=== PATIENT | male | born 1955 | race Two or more races ===

== ENCOUNTER 2018-11-30 20:15 | Emergency (ER) | payer SELFPAY ==
[2018-11-30] MEDS ORDERED: Lidocaine 2% Viscous Solution 15 ML Cup PO ONE (20:17)
[2018-11-30] MEDS ORDERED: Benzocaine 20% Topical Spray UD MUCMEM ONE (20:17)
--- NOTE | 2018-11-30 20:27 | EDM.PDOC ---
ED HPI GENERAL MEDICAL PROBLEM - General Chief Complaint: ENT Problem Stated Complaint: TOOTHACHE Time Seen by Provider: 11/30/18 20:17 Source of Information: Reports: Patient History Limitations: Reports: No Limitations - History of Present Illness INITIAL COMMENTS - FREE TEXT/NARRATIVE: HISTORY AND PHYSICAL: History of present illness: Patient is a 63-year-old male who presents to the emergency room with complaints of left upper and lower dental pain 2-3 days. He states his been using Tylenol and ibuprofen without any relief. He has tenderness to the gumline when chewing or with palpation. Patient does have multiple cavities and fillings noted. Patient denies any fever, chills, headache, change in vision, syncope or near syncope. Denies any chest pain, back pain, shortness of breath or cough. Denies any abdominal pain, nausea, vomiting, diarrhea, constipation or dysuria. Has not noted any blood in urine or stool. Patient has been eating and drinking appropriately. Review of systems: As per history of present illness and below otherwise all systems reviewed and negative. Past medical history: As per history of present illness and as reviewed below otherwise noncontributory. Surgical history: As per history of present illness and as reviewed below otherwise noncontributory. Social history: See social history for further information Family history: As per history of present illness and as reviewed below otherwise noncontributory. Physical exam: General: Well-developed and well-nourished 63-year-old male. Alert and oriented. Nontoxic appearing and in no acute distress. HEENT: Atraumatic, normocephalic, pupils equal and reactive bilaterally, negative for conjunctival pallor or scleral icterus, mucous membranes moist, erythema along the gumline of #15 through 13. Multiple fillings, poor dental hygiene and dental decay/cavities noted. TMs normal bilaterally, throat clear, neck supple, nontender, trachea midline. No drooling or trismus noted. No meningeal signs. No hot potato voice noted. Lungs: Clear to auscultation, breath sounds equal bilaterally, chest nontender. Heart: S1S2, regular rate and rhythm without overt murmur Abdomen: Soft, nondistended, nontender. Skin: Intact, warm, dry. No lesions or rashes noted. Extremities: Atraumatic, moves all extremities per self without difficulty or deficits, negative for cords or calf pain. Neurovascular unremarkable. Neuro: Awake, alert, oriented. Cranial nerves II through XII unremarkable. Cerebellum unremarkable. Motor and sensory unremarkable throughout. Exam nonfocal. Notes: Discussed with patient the importance of follow-up with the dentist. Medication and supportive care measures were reviewed and discussed. Voices understanding and is agreeable to plan of care. Denies any further questions or concerns at this time. Diagnostics: None Therapeutics: Viscous lidocaine, Hurricaine spray Prescription: Pen VK Tramadol (#15) Impression: Dental abscess Plan: 1. Please take the antibiotic as prescribed. 2. Tylenol and/or ibuprofen as needed for pain management. "Tooth Balls" have been given to you; apply along the gumline every 2-3 hours as needed. Do not swallow these; external use only. 3. Follow-up with a dentist for definitive care. Return to the ED as needed and as discussed. Definitive disposition and diagnosis as appropriate pending reevaluation and review of above. dental area Pain Score (Numeric/FACES): 6 - Related Data Allergies Allergy/AdvReac Type Severity Reaction Status Date / Time No Known Allergies Allergy Verified 11/30/18 20:22 Home Meds: Home Meds . [No Known Home Meds] 11/30/18 [History] Past Medical History - Past Health History Medical/Surgical History: Denies Medical/Surgical History ED ROS ENT - Review of Systems Review Of Systems: ROS reveals no pertinent complaints other than HPI. ED EXAM, ENT - Physical Exam Exam: See Below (See dictation) Course - Vital Signs Last Recorded V/S: Last Vital Signs Temp 97.5 F 11/30/18 20:22 Pulse 81 11/30/18 20:22 Resp 18 11/30/18 20:22 BP 141/85 H 11/30/18 20:22 Pulse Ox 97 11/30/18 20:22 - Orders/Labs/Meds Meds: Medications Discontinued Medications Generic Name Dose Route Start Last Admin Trade Name Merline PRN Reason Stop Dose Admin Benzocaine 2 each 11/30/18 20:17 Hurricaine One 20% MUCMEM 11/30/18 20:18 ONETIME ONE Lidocaine HCl 15 ml 11/30/18 20:17 Xylocaine 2% Viscous PO 11/30/18 20:18 ONETIME ONE Departure - Departure Time of Disposition: 20:34 Disposition: Home, Self-Care 01 Clinical Impression: Dental abscess - Discharge Information Instructions: Dental Abscess, [id number] Forms: ED Department Discharge Additional Instructions: The following information is given to patients seen in the emergency department who are being discharged to home. This information is to outline your options for follow-up care. We provide all patients seen in our emergency department with a follow-up referral. The need for follow-up, as well as the timing and circumstances, are variable depending upon the specifics of your emergency department visit. If you don't have a primary care physician on staff, we will provide you with a referral. We always advise you to contact your personal physician following an emergency department visit to inform them of the circumstance of the visit and for follow-up with them and/or the need for any referrals to a consulting specialist. The emergency department will also refer you to a specialist when appropriate. This referral assures that you have the opportunity for follow-up care with a specialist. All of these measure are taken in an effort to provide you with optimal care, which includes your follow-up. Under all circumstances we always encourage you to contact your private physician who remains a resource for coordinating your care. When calling for follow-up care, please make the office aware that this follow-up is from your recent emergency room visit. If for any reason you are refused follow-up, please contact the [facility] Emergency Department at and asked to speak to the emergency department charge nurse. [facility] [address] [place] [id number] [facility] [address] [place] [id number] 1. Please take the antibiotic as prescribed. 2. Tylenol and/or ibuprofen as needed for pain management. "Tooth Balls" have been given to you; apply along the gumline every 2-3 hours as needed. Do not swallow these; external use only. 3. Follow-up with a dentist for definitive care. Return to the ED as needed and as discussed.
[2018-11-30 21:02] VITALS: BP 148/86
== END 2018-11-30 20:55 | disposition home or self-care (01) ==
LOC: MW.ED 20:15
DX: K04.7 Periapical abscess without sinus (principal)
CPT/HCPCS: 99282; A9270

== ENCOUNTER 2018-12-01 15:07 | Emergency (ER) | payer SELFPAY ==
[2018-12-01] MEDS ORDERED: methylPREDNISolone Sodium Succinate 125 MG/2 ML SDV IVPUSH ONE (15:29)
--- NOTE | 2018-12-01 15:49 | EDM.PDOC ---
ED HPI GENERAL MEDICAL PROBLEM - General Chief Complaint: ENT Problem Stated Complaint: SWOLLEN THOAT DUE TO TOOTHACHE Time Seen by Provider: 12/01/18 15:21 Source of Information: Reports: Patient History Limitations: Reports: No Limitations - History of Present Illness INITIAL COMMENTS - FREE TEXT/NARRATIVE: HISTORY AND PHYSICAL: History of present illness: Patient is a 63-year-old male who presents to the emergency room with complaints of throat pain and swelling. I saw this patient yesterday for dental pain and he was started on Pen VK, has had 4 doses of this medication. He states that the dental pain is gone. The pain and discomfort has now migrated to his throat. Feels like he is unable to fully open his mouth. He has been having to spit into a cloth for the past several hours due to pain with swallowing. He is able to swallow, states he prefers to spit his oral secretions out. Patient denies any fever, chills, headache, change in vision, syncope or near syncope. Denies any chest pain, back pain, shortness of breath or cough. Denies any abdominal pain, nausea, vomiting, diarrhea, constipation or dysuria. Has not noted any blood in urine or stool. Patient has been eating and drinking appropriately. Review of systems: As per history of present illness and below otherwise all systems reviewed and negative. Past medical history: As per history of present illness and as reviewed below otherwise noncontributory. Surgical history: As per history of present illness and as reviewed below otherwise noncontributory. Social history: See social history for further information Family history: As per history of present illness and as reviewed below otherwise noncontributory. Physical exam: General: Well-developed and well-nourished 63-year-old male. Alert and oriented. Nontoxic appearing and in no acute distress. HEENT: Atraumatic, normocephalic, pupils equal and reactive bilaterally, negative for conjunctival pallor or scleral icterus, mucous membranes moist, TMs normal bilaterally, difficulty to assess the posterior throat as he does have trismus - able to open for approximately 4 cm. What I am able to visualize it does appear that there is some fullness to the left side of the throat with erythema. When touching the posterior pharynx and the left with the tongue blade he has moderate pain. Does appear to have fullness to the left side of the neck, firm with palpation. Trachea midline. No meningeal signs. No hot potato voice noted. Lungs: Clear to auscultation, breath sounds equal bilaterally, chest nontender. Heart: S1S2, regular rate and rhythm without overt murmur Abdomen: Soft, nondistended, nontender. Negative for masses. Negative for costovertebral tenderness. Pelvis is stable and nontender. Skin: Intact, warm, dry. No lesions or rashes noted. Extremities: Atraumatic, moves all extremities per self without difficulty or deficits. Neurovascular unremarkable. Neuro: Awake, alert, oriented. Cranial nerves II through XII unremarkable. Cerebellum unremarkable. Motor and sensory unremarkable throughout. Exam nonfocal. Notes: Dr Mosqueda was directly involved in this case. CT shows low-attenuation abscess abutting the buccal/inner margin of the mandible at the angle in the automatic nailing machine operator space. Fluid component measures roughly 7 mm diameter. Pterygoid muscles are obscured. Prominent induration and swelling of the surrounding soft tissues including the tonsil, retropharyngeal space, parapharyngeal space and parotid space. Slight narrowing of the airway. Cellulitis along the left cheek and neck with thickening of the platysmas. Multiple bilateral jugular chain nodes are more prominent on the left. They appear reactive without pathologic individually enlarged nodes. 1750: Dr Adams, [facility] in [place], was consulted on this case. He is agreeable to accepting this patient. Patient was informed of diagnostics and the need for transfer to [facility] in [place] for further care and management. [facility] was used. Patient states he does not want to go via ambulance due to financial reasons. He would like his family to drive him. He is aware of the risks of signing out AGAINST MEDICAL ADVICE and driving himself to [facility]. He accepts these risks which include serious injury and/or harm and even . Diagnostics: CBC, CMP, CT soft tissue neck Therapeutics: IV fluid, 125mg Solu-Medrol, clindamycin 900 mg IV, Rocephin 1gm IV Impression: Mandibular abscess and cellulitis Plan: Patient signed out AGAINST MEDICAL ADVICE. He will be transferred to [facility] in not via private vehicle. All imaging was forwarded to [facility]. Discharge summary was faxed to [facility]. Definitive disposition and diagnosis as appropriate pending reevaluation and review of above. Throat Pain Score (Numeric/FACES): 4 - Related Data Allergies Allergy/AdvReac Type Severity Reaction Status Date / Time No Known Allergies Allergy Verified 12/01/18 15:22 Home Meds: Home Meds . [No Known Home Meds] 11/30/18 [History] Past Medical History - Past Health History Medical/Surgical History: Denies Medical/Surgical History HEENT History: Reports: None Cardiovascular History: Reports: None Respiratory History: Reports: None Gastrointestinal History: Reports: None Genitourinary History: Reports: None Musculoskeletal History: Reports: None Neurological History: Reports: None Psychiatric History: Reports: None Endocrine/Metabolic History: Reports: Diabetes, Type II Hematologic History: Reports: None Immunologic History: Reports: None Oncologic (Cancer) History: Reports: None Dermatologic History: Reports: None - Infectious Disease History Infectious Disease History: Reports: None - Past Surgical History Head Surgeries/Procedures: Reports: None Musculoskeletal Surgical History: Reports: Other (See Below) Other Musculoskeletal Surgeries/Procedures:: ankle fracture Social & Family History - Family History Family Medical History: Noncontributory - Tobacco Use Smoking Status *Q: Never Smoker - Recreational Drug Use Recreational Drug Use: No ED ROS ENT - Review of Systems Review Of Systems: ROS reveals no pertinent complaints other than HPI. ED EXAM, ENT - Physical Exam Exam: See Below (See dictation) Course - Vital Signs Last Recorded V/S: Last Vital Signs Temp 98.1 F 12/01/18 15:19 Pulse 90 12/01/18 15:19 Resp 18 12/01/18 15:19 BP 124/82 12/01/18 15:19 Pulse Ox 94 L 12/01/18 15:19 - Orders/Labs/Meds Orders: Active Orders 24 hr Category Date Time Status Clindamycin Phosphate in D5W [Cleocin in D5W] 900 mg Med 12/01/18 17:32 Ordered Premix Bag 1 bag IV ONETIME cefTRIAXone [Rocephin in Dextrose,Iso-Osm 1 GM/50 ML] 1 Med 12/01/18 17:31 Ordered gm Premix Bag 1 bag IV ONETIME Medication Orders Ceftriaxone Sodium/Dextrose 1 (gm/ Premix) 50 mls @ 100 mls/hr IV ONETIME ONE Stop: 12/01/18 18:00 Clindamycin Phosphate 900 mg/ (Premix) 50 mls @ 100 mls/hr IV ONETIME ONE Stop: 12/01/18 18:01 Labs: Laboratory Tests 12/01/18 12/01/18 Range/Units 15:36 15:36 WBC 9.37 (4.0-11.0) K/uL RBC 4.76 (4.50-5.90) M/uL Hgb 14.8 (13.0-17.0) g/dL Hct 43.4 (38.0-50.0) % MCV 91.2 (80.0-98.0) fL MCH 31.1 (27.0-32.0) pg MCHC 34.1 (31.0-37.0) g/dL RDW Std Deviation 41.7 (28.0-62.0) fl RDW Coeff of Amy 13 (11.0-15.0) % Plt Count 178 (150-400) K/uL MPV 9.50 (7.40-12.00) fL Neut % (Auto) 67.0 (48.0-80.0) % Lymph % (Auto) 23.9 (16.0-40.0) % Garrett % (Auto) 8.6 (0.0-15.0) % Eos % (Auto) 0.3 (0.0-7.0) % Baso % (Auto) 0.2 (0.0-1.5) % Neut # (Auto) 6.3 H (1.4-5.7) K/uL Lymph # (Auto) 2.2 (0.6-2.4) K/uL Garrett # (Auto) 0.8 (0.0-0.8) K/uL Eos # (Auto) 0.0 (0.0-0.7) K/uL Baso # (Auto) 0.0 (0.0-0.1) K/uL Nucleated RBC % 0.0 /100WBC Nucleated RBCs # 0 K/uL Sodium 129 L (136-148) mmol/L Potassium 3.7 (3.5-5.1) mmol/L Chloride 96 L (98-107) mmol/L Carbon Dioxide 25.3 (21.0-32.0) mmol/L BUN 9 (7.0-18.0) mg/dL Creatinine 0.9 (0.8-1.3) mg/dL Est Cr Clr Drug Dosing 74.03 mL/min Estimated GFR (MDRD) > 60.0 ml/min Glucose 249 H (74-106) mg/dL Calcium 8.3 L (8.5-10.1) mg/dL Total Bilirubin 0.8 (0.2-1.0) mg/dL AST 12 L (15-37) IU/L ALT 33 (14-63) IU/L Alkaline Phosphatase 126 H (46-116) U/L Total Protein 8.0 (6.4-8.2) g/dL Albumin 3.5 (3.4-5.0) g/dL Globulin 4.5 H (2.6-4.0) g/dL Albumin/Globulin Ratio 0.8 L (0.9-1.6) Meds: Medications Generic Name Dose Route Start Last Admin Trade Name Freq PRN Reason Stop Dose Admin Ceftriaxone Sodium/Dextrose 1 50 mls @ 100 mls/hr 12/01/18 17:31 gm/ Premix IV 12/01/18 18:00 ONETIME ONE Clindamycin Phosphate 900 mg/ 50 mls @ 100 mls/hr 12/01/18 17:32 Premix IV 12/01/18 18:01 ONETIME ONE Discontinued Medications Generic Name Dose Route Start Last Admin Trade Name Freq PRN Reason Stop Dose Admin Sodium Chloride 1,000 mls @ 999 mls/hr 12/01/18 16:24 12/01/18 16:59 Normal Saline IV 12/01/18 17:24 999 mls/hr STAT ONE Administration Iopamidol 75 ml 12/01/18 16:52 12/01/18 16:52 Isovue Multipack-370 (76%) IVPUSH 12/01/18 16:53 75 ml ONETIME ONE Administration Methylprednisolone Sodium Succinate 125 mg 12/01/18 15:29 12/01/18 15:46 Solu-Medrol IVPUSH 12/01/18 15:30 125 mg ONETIME ONE Administration Departure - Departure Time of Disposition: 18:06 Disposition: Against Medical Advice 07 Clinical Impression: Mandibular abscess, Cellulitis, neck - Discharge Information Referrals: PCP,None [Primary Care Provider] - Forms: ED Department Discharge Additional Instructions: The following information is given to patients seen in the emergency department who are being discharged to home. This information is to outline your options for follow-up care. We provide all patients seen in our emergency department with a follow-up referral. The need for follow-up, as well as the timing and circumstances, are variable depending upon the specifics of your emergency department visit. If you don't have a primary care physician on staff, we will provide you with a referral. We always advise you to contact your personal physician following an emergency department visit to inform them of the circumstance of the visit and for follow-up with them and/or the need for any referrals to a consulting specialist. The emergency department will also refer you to a specialist when appropriate. This referral assures that you have the opportunity for follow-up care with a specialist. All of these measure are taken in an effort to provide you with optimal care, which includes your follow-up. Under all circumstances we always encourage you to contact your private physician who remains a resource for coordinating your care. When calling for follow-up care, please make the office aware that this follow-up is from your recent emergency room visit. If for any reason you are refused follow-up, please contact the [facility] Emergency Department at and asked to speak to the emergency department charge nurse. [facility] :Emergency Room [address] [facility] [id number] 1. You declined ambulance transfer to [facility]. Please go directly to [facility]. 2. Do not eat or drink anything until you are told otherwise 3. If you have any problems between here and [place], please shoe puller and call 911 or go directly to the closest emergency room. - My Orders Last 24 Hours: My Active Orders 12/01/18 17:31 cefTRIAXone [Rocephin in Dextrose,Iso-Osm 1 GM/50 ML] 1 gm Premix Bag 1 bag IV ONETIME 12/01/18 17:32 Clindamycin Phosphate in D5W [Cleocin in D5W] 900 mg Premix Bag 1 bag IV ONETIME - Assessment/Plan Last 24 Hours: My Active Orders 12/01/18 17:31 cefTRIAXone [Rocephin in Dextrose,Iso-Osm 1 GM/50 ML] 1 gm Premix Bag 1 bag IV ONETIME 12/01/18 17:32 Clindamycin Phosphate in D5W [Cleocin in D5W] 900 mg Premix Bag 1 bag IV ONETIME
[2018-12-01 16:14] LABS: CHLORIDE,CL 96 mmol/L (98-107); SODIUM,NA 129 mmol/L (136-148)
[2018-12-01] MEDS ORDERED: Sodium Chloride 0.9% 1,000 ML IV ONE (16:24)
[2018-12-01] MEDS ORDERED: Iopamidol 755 MG/ML 500 ML Multipack Bottle IVPUSH ONE (16:52)
--- NOTE | 2018-12-01 17:30 | CT ---
INDICATION: throat pain. peritonsillar abscess. Low-attenuation abscess abutting the buccal/inner margin of the mandible at the angle in the rug cleaner hand space. Fluid component measures roughly 7 mm diameter. Pterygoid muscles are obscured. Prominent induration and swelling of the surrounding soft tissues including the tonsil, retropharyngeal space, parapharyngeal space and parotid space. Slight narrowing of the airway. Cellulitis along the left cheek and neck with thickening of the platysmas. Multiple bilateral jugular chain nodes are more prominent on the left. They appear reactive without pathologic individually enlarged nodes. Dictated by Yonatan Rose MD @ 12/01/2018 5:28:15 PM Prelim Report By Dr. Yonatan Rose @ 12/01/2018 5:28:44 PM ADDENDUM All images reviewed. Agree with preliminary report. No additional significant findings. Please note that all CT scans at this facility use dose modulation, iterative reconstruction, and/or weight-based dosing when appropriate to reduce radiation dose to as low as reasonably achievable. Dictated by: José Miguel Hinton MD @ 12/02/2018 08:20:42 (Electronically Signed)
[2018-12-01] MEDS ORDERED: cefTRIAXone 1 GM in Premix Bag 1 BAG IV ONE (17:31)
[2018-12-01] MEDS ORDERED: Clindamycin Phosphate in D5W 900 MG in Premix Bag 1 BAG IV ONE ×2 (17:32)
[2018-12-01 19:31] VITALS: BP 142/80
== END 2018-12-01 19:08 | disposition left against medical advice (07) ==
LOC: MW.ED 15:07
DX: M27.2 Inflammatory conditions of jaws (principal); L03.211 Cellulitis of face; L03.221 Cellulitis of neck; E11.9 Type 2 diabetes mellitus without complications; Z53.20 Procedure and treatment not carried out because of patient's decision for unspecified reasons
CPT/HCPCS: 36415; 70491; 80053; 85025; 96361; 96365; 96367; 96375; 99285; A4217; J0696; J2930; J3490; J7040; Q9967